=== PATIENT | female | born 1980 | race Caucasian/White ===

== ENCOUNTER 2018-07-18 16:32 | Emergency (ER) | payer SELFPAY ==
[~2018-07-18] VITALS: Wt 82.3 kg
[~2018-07-18 16:32] MED LIST: PREN1TAB49 PO
[2018-07-18] MEDS ORDERED: morphine 4 MG/ML VIAL IV STA ×2 (19:24→20:26)
[2018-07-18] MEDS ORDERED: ONDANSETRON 4 MG INJ IV STA (19:24)
[2018-07-18] MEDS ORDERED: SOD CHLORIDE 0.9% 1,000 ML IV ONE (20:26)
[2018-07-18] MEDS ORDERED: CEFTRIAXONE 1 GM/50 ML (PMX) 50 ML IVPB ONE (20:30)
[2018-07-18] MEDS ORDERED: IOHEXOL 300MG/ML 150 ML BTL ONE (20:47)
[2018-07-18] MEDS ORDERED: SOD CHLORIDE 0.9% 100 ML ONE (20:47)
[2018-07-18] MEDS ORDERED: CIPR500S2 PO (22:28)
[2018-07-18] MEDS ORDERED: HYDR-4011 PO (22:28)
[2018-07-18] MEDS ORDERED: ONDA8TAB14 PO (22:28)
--- NOTE | 2018-07-18 22:33 | ERD ---
ER Documentation Chief Complaint Chief Complaint RUQ PAIN X 4 DAYS HPI 37-year-old female presents with right upper quadrant abdominal pain nausea for last 4 days. Is worse with eating. She has nausea but no vomiting. She denies fevers. She possibly has some urinary complaints of dysuria as well. She denies . She denies known previous history of gallstones. ROS All systems reviewed and are negative except as per history of present illness. Medications Home Meds Active Scripts Ciprofloxacin (Ciprofloxacin) 500 Mg/5 Ml Nargis.mc.rec, 500 MG PO BID for 7 Days, #14 TAB Prov:EDITH FARIAS MD 07/18/18 Ondansetron (Ondansetron Odt) 8 Mg Tab.rapdis, 8 MG PO Q6H PRN for NAUSEA AND/OR VOMITING, #10 TAB Prov:EDITH FARIAS MD 07/18/18 Hydrocodone/Acetaminophen ([place] 5-325 Tablet) 1 Each Tablet, 1 TAB PO Q6H PRN for PAIN, #14 TAB Prov:EDITH FARIAS MD 07/18/18 Reported Medications Vits W-Ca,Fe,Fa(<1MG) () 1 Tab Tablet, 1 TAB PO DAILY, 0 Refills 03/25/11 Allergies Allergies: Coded Allergies: No Known Allergy (Verified , 09/10/11) PMhx/Soc History of Surgery: No Anesthesia Reaction: No Hx Neurological Disorder: No Hx Respiratory Disorders: No Hx Cardiac Disorders: No Hx Psychiatric Problems: No Hx Miscellaneous Medical Probl: No Hx Alcohol Use: No Hx Substance Use: No Hx Tobacco Use: No Smoking Status: Never smoker FmHx Family History: No diabetes, No coronary disease, No other Physical Exam Vitals Vital Signs Date Temp Pulse Resp B/P (MAP) Pulse Ox O2 O2 Flow FiO2 Time Delivery Rate 07/18/18 98.1 78 18 132/88 99 16:45 (103) Physical Exam Const: No acute distress Head: Atraumatic Eyes: Normal Conjunctiva ENT: Normal External Ears, Nose and Mouth. Neck: Full range of motion. No meningismus. Resp: Clear to auscultation bilaterally Cardio: Regular rate and rhythm, no murmurs Abd: Soft, positive Chery sign. No tenderness at McBurney's point., non distended. Normal bowel sounds Skin: No petechiae or rashes Back: No midline or flank tenderness Ext: No cyanosis, or edema Neur: Awake and alert Psych: Normal Mood and Affect Result Diagram: 07/18/18193907/18/181939 Results 24 hrs Laboratory Tests Test 07/18/18 19:27 07/18/18 19:34 07/18/18 19:40 Urine Color YELLOW Urine Clarity SLIGHTLY CLOUDY Urine pH 5.0 Urine Specific [place] 1.014 Urine Ketones NEGATIVE mg/dL Urine Nitrite NEGATIVE mg/dL Urine Bilirubin NEGATIVE mg/dL Urine Urobilinogen 1+ mg/dL Urine Leukocyte Esterase 3+ Iggy/ul Urine Microscopic RBC 10 /HPF Urine Microscopic WBC 26 /HPF Urine Squamous Epithelial Cells FEW /HPF Urine Mucus FEW /HPF Urine Hemoglobin 1+ mg/dL Urine Glucose NEGATIVE mg/dL Urine Total Protein NEGATIVE mg/dl POC Beta HCG, Qualitative NEGATIVE White Blood Count 11.9 10^3/ul Red Blood Count 4.71 10^6/ul Hemoglobin 13.7 g/dl Hematocrit 40.4 % Mean Corpuscular Volume 85.8 fl Mean Corpuscular Hemoglobin 29.1 pg Mean Corpuscular 33.9 g/dl Hemoglobin Concent Red Cell Distribution Width 13.5 % Platelet Count 256 10^3/UL Mean Platelet Volume 8.9 fl Immature Granulocytes % 0.400 % Neutrophils % 80.5 % Lymphocytes % 13.7 % Monocytes % 4.7 % Eosinophils % 0.4 % Basophils % 0.3 % Nucleated Red Blood Cells % 0.0 /100WBC Immature Granulocytes # 0.050 10^3/ul Neutrophils # 9.5 10^3/ul Lymphocytes # 1.6 10^3/ul Monocytes # 0.6 10^3/ul Eosinophils # 0.1 10^3/ul Basophils # 0.0 10^3/ul Nucleated Red Blood Cells # 0.0 10^3/ul Sodium Level 140 mmol/L Potassium Level 4.0 mmol/L Chloride Level 102 mmol/L Carbon Dioxide Level 24 mmol/L Anion Gap 14 Blood Urea Nitrogen 8 mg/dl Creatinine 0.64 mg/dl Est Glomerular Filtrat > 60 mL/min Rate mL/min Glucose Level 110 mg/dl Calcium Level 9.9 mg/dl Total Bilirubin 0.5 mg/dl Direct Bilirubin 0.00 mg/dl Indirect Bilirubin 0.5 mg/dl Aspartate Amino 30 IU/L Transf (AST/SGOT) Alanine 24 IU/L Aminotransferase (ALT/SGPT) Alkaline Phosphatase 80 IU/L Total Protein 9.2 g/dl Albumin 5.1 g/dl Globulin 4.10 g/dl Albumin/Globulin Ratio 1.24 Lipase 60 U/L Current Medications Medications Dose Sig/Denisse Start Time Status Last (Trade) Ordered Route PRN Stop Time Admin Dose Reason Admin Morphine 4 mg ONCE STAT 07/18/18 DC 07/18/18 Sulfate IV 19:24 19:46 (morphine) 07/18/18 19:26 Ondansetron 4 mg ONCE STAT 07/18/18 DC 07/18/18 HCl (Zofran IV 19:24 19:46 Inj) 07/18/18 19:26 Ceftriaxone 50 ml @ ONCE ONCE 07/18/18 DC 07/18/18 Sodium 100 mls/hr IVPB 20:30 20:32 07/18/18 20:59 Morphine 4 mg ONCE STAT 07/18/18 DC 07/18/18 Sulfate IV 20:26 20:32 (morphine) 07/18/18 20:30 Sodium 1,000 ml @ Q0M ONCE 07/18/18 DC 07/18/18 Chloride 0 mls/hr IV 20:26 20:32 07/18/18 20:30 IV Flush 10 ml STK-MED 07/18/18 DC 07/18/18 (NS 10 ml) ONCE .ROUTE 20:47 21:38 07/18/18 20:48 Sodium 100 ml @ ud STK-MED 07/18/18 DC 07/18/18 Chloride ONCE .ROUTE 20:47 21:39 07/18/18 20:48 Iohexol 150 ml STK-MED 07/18/18 DC 07/18/18 (Omnipaque ONCE .ROUTE 20:47 21:39 300mg/ ml) 07/18/18 20:48 Ketorolac 30 mg ONCE STAT 07/18/18 DC Tromethamine IV 22:37 (Toradol) 07/18/18 22:40 Procedures/MDM Urine shows white blood cells and leukocyte esterase. Patient does not meet SIRS criteria. HCG is negative. White blood cell count is 11. CMP shows no transaminitis or additional acute abnormalities and lipase is normal. Right upper quadrant ultrasound shows possible dilated pancreatic duct and gallstones without cystitis or choledocholithiasis. CT recommended for further evaluation of pancreas. She was given morphine 4 mg IV x2 Zofran 4 mg IV. Patient was given 1 L normal saline IV. Patient was given Rocephin 1 g IV for findings of UTI. CT abdomen pelvis shows possible stranding around the gallbladder but no absolute signs of cholecystitis, thickening or choledocholithiasis. There is no abnormalities of the pancreas to correlate with ultrasound. Patient presents with signs and symptoms of UTI, biliary colic. There are no absolute signs of cholecystitis although patient will be given Cipro for treatment of UTI which may help with possible subclinical early cholecystitis. Patient is advised to follow-up with general surgery for evaluation of cholecystectomy. She is advised she may need authorization from primary doctor for general surgery visit. Is no current signs or symptoms of appendicitis, additional symptoms. Cures review negative. Departure Diagnosis: Primary Impression: Gallstones Additional Impressions: UTI (urinary tract infection) Urinary tract infection type: acute cystitis Hematuria presence: without hematuria Qualified Codes: N30.00 - Acute cystitis without hematuria Abdominal pain Abdominal location: right upper quadrant Qualified Codes: R10.11 - Right upper quadrant pain Condition: Stable Patient Instructions: Understanding Urinary Tract Infections (UTIs), Gallstones Referrals: Sarah UREÑA SAMUEL MD KOSARI, KAMBIZ M.D. LOMIS, THOMAS MD Additional Instructions: We will treat for findings of urinary tract infection. There are gallstones without obvious signs of infection or obstruction. Avoid fatty foods. Recheck for fevers, worsening pain, vomiting, new worsening symptoms. Recommend general surgery evaluation for evaluation for removal of gallbladder. May need authorization from primary doctor for general surgery visit. EDITH FARIAS MD Jul 18, 2018 22:33
[2018-07-18] MEDS ORDERED: KETOROLAC 30 MG INJ IV STA (22:37)
[2018-07-18 22:58] VITALS: BP 129/65; PULSE 75; RESP 18
== END 2018-07-18 22:59 | disposition home or self-care (01) ==
LOC: FTE 16:32
DX: K80.20 Calculus of gallbladder without cholecystitis without obstruction (principal); N30.00 Acute cystitis without hematuria
CPT/HCPCS: 36415; 74177; 76705; 80053; 81001; 81025; 83690; 85025; 96374; 96375; 96376; 99285; J0696; J1885; J2270; J2405; J7030; Q9967

== ENCOUNTER 2018-07-20 05:07 | Inpatient (IN) | payer MEDICAID ==
[~2018-07-20] VITALS: Ht 170.2 cm; Wt 81.8 kg
[~2018-07-20 05:07] MED LIST changes: +CIPR500S2 PO; +HYDR-4011 PO; +ONDA8TAB14 PO
[2018-07-20] MEDS ORDERED: morphine 4 MG/ML VIAL IV STA (05:09)
[2018-07-20] MEDS ORDERED: SOD CHLORIDE 0.9% 1,000 ML IV STA (05:09)
[2018-07-20] MEDS ORDERED: ONDANSETRON 4 MG INJ IV STA (05:09)
[2018-07-20 05:10] VITALS: Ht 170.2 cm; Wt 81.8 kg
--- NOTE | 2018-07-20 06:21 | ERD ---
ER Documentation Chief Complaint Chief Complaint BIB RA 889 for AP w/ n/v, hx of gallstones HPI 37-year-old female who was recently here diagnosed with biliary colic who presents because of persistent pain. Patient was seen here several days ago and diagnosed with biliary colic on ultrasound which showed a possibly dilated common bile duct. LFTs were nonobstructive. The patient states [place] at home is not helping. 10 out of 10 severe persistent right upper quadrant abdominal pain is present. No fevers or chills. Persistent nausea. ROS All systems reviewed and are negative except as per history of present illness. Medications Home Meds Active Scripts Ciprofloxacin (Ciprofloxacin) 500 Mg/5 Ml Nargis.mc.rec, 500 MG PO BID for 7 Days, #14 TAB Prov:EDITH FARIAS MD 07/18/18 Ondansetron (Ondansetron Odt) 8 Mg Tab.rapdis, 8 MG PO Q6H PRN for NAUSEA AND/OR VOMITING, #10 TAB Prov:EDITH FARIAS MD 07/18/18 Hydrocodone/Acetaminophen ([place] 5-325 Tablet) 1 Each Tablet, 1 TAB PO Q6H PRN for PAIN, #14 TAB Prov:EDITH FARIAS MD 07/18/18 Reported Medications Vits W-Ca,Fe,Fa(<1MG) () 1 Tab Tablet, 1 TAB PO DAILY, 0 Refills 03/25/11 Allergies Allergies: Coded Allergies: No Known Allergy (Verified , 09/10/11) PMhx/Soc History of Surgery: No Anesthesia Reaction: No Hx Neurological Disorder: No Hx Respiratory Disorders: No Hx Cardiac Disorders: No Hx Psychiatric Problems: No Hx Miscellaneous Medical Probl: No Hx Alcohol Use: No Hx Substance Use: No Hx Tobacco Use: No Smoking Status: Never smoker FmHx Family History: No diabetes Physical Exam Vitals Vital Signs Date Temp Pulse Resp B/P (MAP) Pulse Ox O2 O2 Flow FiO2 Time Delivery Rate 07/20/18 98.0 66 16 134/94 100 05:10 (107) 07/20/18 98.0 68 15 134/74 99 Room Air 05:09 (94) Physical Exam General: Uncomfortable and in pain Head: Normocephalic, atraumatic. Eyes: Pupils equally reactive, EOM intact ENT: Moist mucous membranes Neck: Supple, no lymphadenopathy Respiratory: Lungs clear bilaterally, no distress Cardiovascular: RRR, no murmurs, rubs, or gallops Abdominal: Soft, focal tenderness to the right upper quadrant positive Chery sign : Deferred MSK: No edema, no unilateral swelling, 5/5 strength Neurologic: Alert and oriented, moving all extremities, normal speech, no focal weakness, no cerebellar signs Skin: No rash Psych: Normal mood Result Diagram: 07/20/1852007/20/18520 Results 24 hrs Laboratory Tests Test 07/20/18 05:21 07/20/18 06:06 White Blood Count 9.3 10^3/ul Red Blood Count 4.27 10^6/ul Hemoglobin 12.4 g/dl Hematocrit 36.7 % Mean Corpuscular Volume 85.9 fl Mean Corpuscular Hemoglobin 29.0 pg Mean Corpuscular Hemoglobin Concent 33.8 g/dl Red Cell Distribution Width 13.2 % Platelet Count 234 10^3/UL Mean Platelet Volume 9.0 fl Immature Granulocytes % 0.300 % Neutrophils % 84.1 % Lymphocytes % 9.0 % Monocytes % 6.2 % Eosinophils % 0.2 % Basophils % 0.2 % Nucleated Red Blood Cells % 0.0 /100WBC Immature Granulocytes # 0.030 10^3/ul Neutrophils # 7.8 10^3/ul Lymphocytes # 0.8 10^3/ul Monocytes # 0.6 10^3/ul Eosinophils # 0.0 10^3/ul Basophils # 0.0 10^3/ul Nucleated Red Blood Cells # 0.0 10^3/ul Sodium Level 140 mmol/L Potassium Level 4.1 mmol/L Chloride Level 102 mmol/L Carbon Dioxide Level 27 mmol/L Anion Gap 11 Blood Urea Nitrogen 7 mg/dl Creatinine 0.61 mg/dl Est Glomerular Filtrat Rate mL/min > 60 mL/min Glucose Level 128 mg/dl Calcium Level 9.6 mg/dl Total Bilirubin 0.7 mg/dl Direct Bilirubin 0.00 mg/dl Indirect Bilirubin 0.7 mg/dl Aspartate Amino Transf (AST/SGOT) 64 IU/L Alanine Aminotransferase (ALT/SGPT) 101 IU/L Alkaline Phosphatase 106 IU/L Total Protein 8.2 g/dl Albumin 4.6 g/dl Globulin 3.60 g/dl Albumin/Globulin Ratio 1.27 Lipase 57 U/L POC Beta HCG, Qualitative NEGATIVE Current Medications Medications Dose Sig/Denisse Start Time Status Last (Trade) Ordered Route PRN Stop Time Admin Dose Reason Admin Sodium 1,000 ml @ Q1H STAT 07/20/18 DC 07/20/18 Chloride 1,000 mls/hr IV 05:09 06:01 07/20/18 06:08 Morphine 4 mg ONCE STAT 07/20/18 DC 07/20/18 Sulfate IV 05:09 05:55 (morphine) 07/20/18 05:11 Ondansetron 4 mg ONCE STAT 07/20/18 DC 07/20/18 HCl (Zofran IV 05:09 05:54 Inj) 07/20/18 05:11 Ampicillin 100 ml @ ONCE ONCE 07/20/18 Sodium/ 100 mls/hr IVPB 06:30 Sulbactam 07/20/18 07:29 Sodium Procedures/MDM EKG, MONITORS, & DIAGNOSTIC IMAGING: Gallbladder ultrasound: IMPRESSION: Study slightly limited by bowel gas. distended gallbladder with stones and positive sonographic Chery's sign as well as dilated common bile duct. Acute cholecystitis with choledocholithiasis must be considered. HIDA scan could confirm cholecystitis while MRCP would be helpful in evaluating for choledocholithiasis. Hepatomegaly. RPTAT: [facility] LAB INTERPRETATION: * No leukocytosis * Slight transaminitis MEDICAL DECISION MAKING: The patient presents with persistent right upper quadrant abdominal pain in the setting of gallstones. Consider persistent biliary colic, acute cholecystitis or choledocholithiasis. Given the persistence of pain and focal tenderness this raises the concern for more of an acute process that warrants hospitalization and general surgery consultation. Laboratory testing and repeat ultrasound would be appropriate. ER COURSE: * The patient has no fever no white count but ultrasound is concerning for acute cholecystitis. Also consider choledocholithiasis * General surgery will be consulted * IV fluids and pain control medication provided. Unasyn given. CONSULTATION: General surgeon: Dr. Connelly DISPOSITION PLAN: Medical surgical admission Accepting care team and consultations: I discussed the current laboratory data, diagnostic imaging and emergency care provided. Admitting team: Dr. Stewart Admitting team indication: Insurance directed Departure Diagnosis: Primary Impression: Acute cholecystitis Additional Impressions: Choledocholithiasis Right upper quadrant abdominal pain Condition: Good ZION ORR MD Jul 20, 2018 06:21
[2018-07-20] MEDS ORDERED: AMPICILLIN/SULB 3 GM/NS (PMX) 100 ML IVPB ONE (06:30)
[2018-07-20] MEDS ORDERED: HYDROmorphONE 0.5 MG/0.5 ML SYG IV STA (06:49)
[2018-07-20] MEDS ORDERED: ONDANSETRON 4 MG INJ IV PRN ×2 (07:00)
[2018-07-20] MEDS ORDERED: HYDROmorphONE 0.5 MG/0.5 ML SYG IV PRN (07:00)
[2018-07-20] MEDS ORDERED: NACL 0.9% 3 ML SYG IV SCH (07:00)
[2018-07-20] MEDS ORDERED: BISACODYL (EC) 5 MG TAB PO PRN (07:00)
[2018-07-20] MEDS ORDERED: ACETAMINOPHEN 325 MG TAB PO PRN (07:00)
[2018-07-20] MEDS ORDERED: DOCUSATE SODIUM 100 MG CAP PO PRN (07:00)
[2018-07-20] MEDS: SOD CHLORIDE 0.9% 1,000 ML IV SCH ×2 (07:11→21:26)
--- NOTE | 2018-07-20 08:52 | HP ---
Date/Time of Note Date/Time of Note DATE: 07/20/18 TIME: 08:43 Assessment/Plan VTE Prophylaxis SCD applied (from Nsg): Yes Pharmacological prophylaxis: NA/contraindicated Pharm contraindication: low risk/ambulating Lines/Catheters IV Catheter Type (from Nrsg): Saline Lock Assessment/Plan Hospital Course This is a 37 per female being admitted to the [facility] floor for: #1 suspicion for acute cholecystitis: Ultrasound findings concerning for acute cholecystitis with with CBD dilatation concerning for choledocholithiasis. Patient however is afebrile and no leukocytosis. However patient is symptomatic. Her AST and ALT are slightly elevated however she has normal alk phos and bilirubin. Will obtain an MRCP to further evaluate. General surgery Dr. Connelly is [place] been consulted by the ED. At the current time we will keep the patient n.p.o., IV fluid hydration with normal saline, Dilaudid for pain control. Zosyn IV every 6 hours. #2 urinary tract infection: Was on Cipro as an outpatient, at the current time I will hold this as she will be on Zosyn. #3 DVT GI prophylaxis: SCDs, no GI prophylaxis indicated Further treatment strategy will be implemented as per the clinical course Result Diagram: 07/20/18 0521 07/20/18 0521 Results 24hrs Laboratory Tests Test 07/20/18 05:21 07/20/18 06:06 White Blood Count 9.3 # Red Blood Count 4.27 Hemoglobin 12.4 Hematocrit 36.7 L Mean Corpuscular Volume 85.9 Mean Corpuscular Hemoglobin 29.0 Mean Corpuscular Hemoglobin Concent 33.8 Red Cell Distribution Width 13.2 Platelet Count 234 Mean Platelet Volume 9.0 Immature Granulocytes % 0.300 Neutrophils % 84.1 H Lymphocytes % 9.0 L Monocytes % 6.2 Eosinophils % 0.2 Basophils % 0.2 Nucleated Red Blood Cells % 0.0 Immature Granulocytes # 0.030 Neutrophils # 7.8 H Lymphocytes # 0.8 Monocytes # 0.6 Eosinophils # 0.0 Basophils # 0.0 Nucleated Red Blood Cells # 0.0 Sodium Level 140 Potassium Level 4.1 Chloride Level 102 Carbon Dioxide Level 27 Anion Gap 11 Blood Urea Nitrogen 7 Creatinine 0.61 Est Glomerular Filtrat Rate mL/min > 60 Glucose Level 128 Calcium Level 9.6 Total Bilirubin 0.7 Direct Bilirubin 0.00 Indirect Bilirubin 0.7 Aspartate Amino Transf (AST/SGOT) 64 H Alanine Aminotransferase (ALT/SGPT) 101 H Alkaline Phosphatase 106 Total Protein 8.2 H Albumin 4.6 Globulin 3.60 H Albumin/Globulin Ratio 1.27 Lipase 57 POC Beta HCG, Qualitative NEGATIVE HPI/ROS Admit Date/Time Admit Date/Time Hx of Present Illness Chief complaint: Abdominal pain nausea vomiting This is a 37-year-old female who was recently here diagnosed with biliary colic who presents because of persistent pain. Patient was seen here several days ago and diagnosed with biliary colic on ultrasound which showed a possibly dilated common bile duct. LFTs were nonobstructive. The patient states [place] at home is not helping. 10 out of 10 severe persistent right upper quadrant abdominal pain is present. No fevers or chills. Persistent nausea And vomiting. She is also currently being treated for UTI with Cipro. Allergies: NKDA Medications: See Sep Const: As per HPI Eyes : No pain discharge or redness or change in visual acuity ENT: No pain, sore throat, congestion, congestion, dysphagia or discharge Respiratory: No shortness of breath, cough, sputum, wheezing, or pleuritic pain Cardiovascular: No chest pain, palpitation, PND, or edema GI : As per HPI Genitourinary: No dysuria, hematuria, flank pain , discharge or CVA tenderness Musculoskeletal: No joint pain, back pain, neck pain, restricted range of motion in neck or joints Skin: No rash, bruising or hives Neuro: No headache, dizziness, syncope, seizure, focal weakness Endocrine: No polyuria, polydipsia, temperature intolerance Psych: No hallucination, depression, anxiety or suicidal ideation Psychological: no complaints, nl mood/affect PMH/Family/Social Past Medical History Gallstones, UTI Medications Current Medications Ondansetron HCl (Zofran Inj) 4 mg BRIDGE ORDER PRN IV NAUSEA AND/OR VOMITING Last administered on 07/20/18at 07:10; Admin Dose 4 MG; Start 07/20/18 at 07:00; Stop 07/21/18 at 06:59 Acetaminophen (Tylenol Tab) 650 mg ER BRIDGE PRN PO MILD PAIN(1-3)OR ELEVATED TEMP; Start 07/20/18 at 07:00; Stop 07/21/18 at 06:59 Sodium Chloride 1,000 ml @ 100 mls/hr Q10H IV Last administered on 07/20/18at 07:11; Admin Dose 100 MLS/HR; Start 07/20/18 at 06:44 IV Flush (NS 3 ml) 3 ml PER PROTOCOL IV ; Start 07/20/18 at 07:00 Ondansetron HCl (Zofran Inj) 4 mg Q6H PRN IV NAUSEA AND/OR VOMITING; Start 07/20/18 at 07:00 Acetaminophen (Tylenol Tab) 650 mg Q6H PRN PO PAIN LEVEL 1-3 OR FEVER; Start 07/20/18 at 07:00 Hydromorphone HCl (Dilaudid) 0.5 mg Q4H PRN IV SEVERE PAIN LEVEL 7-10; Start 07/20/18 at 07:00 Docusate Sodium (Colace) 100 mg Q12H PRN PO CONSTIPATION; Start 07/20/18 at 07 :00 Bisacodyl (Dulcolax) 5 mg DAILY PRN PO CONSTIPATION; Start 07/20/18 at 07:00 Coded Allergies: No Known Allergy (Verified , 07/20/18) Past Surgical History Bilateral tubal ligation Family History Significant Family History: no pertinent family hx Social History Alcohol Use: none Smoking Status: Never smoker Drug Use: none Exam/Review of Systems Vital Signs Vitals Vital Signs Date Temp Pulse Resp B/P (MAP) Pulse Ox O2 O2 Flow FiO2 Time Delivery Rate 07/20/18 69 121/74 98 Room Air 07:30 (90) 07/20/18 98.0 16 05:10 Exam Exam General: Patient is currently lying in bed, she does appear to be in mild distress from abdominal pain HEENT: Atraumatic, normocephalic. The pupils are equal, round and reactive. Extraocular motor are intact Neck: Supple with full range of motion. No rigidity or meningismus Chest: Nontender Lungs: Clear to auscultation bilaterally no crackles rales or wheezing Heart: Normal S1-S2, Regular rhythm and rate. No overt murmurs appreciated on auscultation Abdomen: Right upper quadrant tenderness to palpation, nondistended, normal bowel sounds. No CVA tenderness elevation. Extremities: Normal to inspection, no edema no cyanosis Neurologic: Normal mental status, speech normal, cranial nerves II through XII are intact, motor and sensory are intact, no focal weakness VIVIAN PERRY Jul 20, 2018 08:52
[2018-07-20] MEDS: PIPER-TAZO 3.375 GM IV (PMX) 100 ML IVPB SCH ×4 (09:51→23:47)
[2018-07-20 10:37] VITALS: BP 138/80; PULSE 66; RESP 17
[2018-07-20] MEDS: HYDROmorphONE 1 MG/ML SYG IV PRN ×4 (12:35→21:26)
--- NOTE | 2018-07-20 12:41 | PN ---
Date/Time of Note Date/Time of Note DATE: 07/20/18 TIME: 12:40 Assessment/Plan VTE Prophylaxis SCD applied (from Nsg): Yes Pharmacological prophylaxis: NA/contraindicated Pharm contraindication: low risk/ambulating Lines/Catheters IV Catheter Type (from Nrsg): Saline Lock Assessment/Plan Hospital Course SUBJECTIVE: Continues to complain of abdominal pain. OBJECTIVE: Physical Exam General: Adequately build 37 year-old female lying in bed in no apparent distress. HEENT: Normocephalic, atraumatic. Eyes: Anicteric sclerae, conjunctivae clear. ENT: Nasal septum midline, oral mucosa moist. Neck supple, no JVD noticed. Respiratory: Bilaterally clear breath sounds. No use of accessory muscles of respiration. No adventitious breath sounds. Cardiovascular: S1, S2 heard. No murmurs or gallops. Abdomen: Soft and nondistended. Epigastric and right upper quadrant tenderness. Bowel sounds positive in all 4 quadrants. Genitourinary: Deferred. Extremities: No cyanosis, no clubbing, no edema. Peripheral pulses palpable. Neurologic: Cranial nerves II through XII grossly intact. The patient is awake, alert, and oriented. Skin: Normal skin turgor. No skin rashes. Labs & Vitals per chart ASSESSMENT & PLAN This is a 37-year-old [place] female who was recently diagnosed with gallstones and was instructed to follow-up with outpatient surgery for elective cholecy stectomy. The patient was initially seen at [facility] on 07/18/2018. The patient returned back to [facility] on 07/20/2018 because of abdominal pain with associated nausea and vomiting. The patient underwent a gallbladder ultrasound that was showing distended ga llbladder with stones and positive sonographic Chery's sign along with a dilated common bile duct. The patient also had underlying transaminitis without hyperbilirubinemia. Therefore, the patient was admitted to inpatient setting for further treatment and evaluation. 1. Symptomatic cholelithiasis -Possible underlying cholecystitis. -Continue empiric antimicrobials including coverage for anaerobes. -General surgery has been consulted. -Pending MRCP to evaluate for any choledocholithiasis. 2. Transaminitis without hyperbilirubinemia. -Continue management as per #1. 3. Recently diagnosed urinary tract infection. -Was on Cipro as outpatient (no cultures were sent on 07/18/2018). -Continue Zosyn at this time. 4. Fluids, electrolytes, and nutrition. -N.p.o. except for medications. -IV fluids. 5. DVT prophylaxis. -Bilateral SCDs 6. Plan. -Continue pain control. -Await MRCP. -Await surgical evaluation. The patient was seen in collaboration with . Result Diagram: 07/20/18 0507/20/18 0521 Results 24hrs Laboratory Tests Test 07/20/18 05:21 07/20/18 06:06 07/20/18 10:11 White Blood Count 9.3 # Red Blood Count 4.27 Hemoglobin 12.4 Hematocrit 36.7 L Mean Corpuscular Volume 85.9 Mean Corpuscular Hemoglobin 29.0 Mean Corpuscular Hemoglobin Concent 33.8 Red Cell Distribution Width 13.2 Platelet Count 234 Mean Platelet Volume 9.0 Immature Granulocytes % 0.300 Neutrophils % 84.1 H Lymphocytes % 9.0 L Monocytes % 6.2 Eosinophils % 0.2 Basophils % 0.2 Nucleated Red Blood Cells % 0.0 Immature Granulocytes # 0.030 Neutrophils # 7.8 H Lymphocytes # 0.8 Monocytes # 0.6 Eosinophils # 0.0 Basophils # 0.0 Nucleated Red Blood Cells # 0.0 Sodium Level 140 Potassium Level 4.1 Chloride Level 102 Carbon Dioxide Level 27 Anion Gap 11 Blood Urea Nitrogen 7 Creatinine 0.61 Est Glomerular Filtrat Rate mL/min > 60 Glucose Level 128 Calcium Level 9.6 Total Bilirubin 0.7 Direct Bilirubin 0.00 Indirect Bilirubin 0.7 Aspartate Amino Transf (AST/SGOT) 64 H Alanine Aminotransferase (ALT/SGPT) 101 H Alkaline Phosphatase 106 Total Protein 8.2 H Albumin 4.6 Globulin 3.60 H Albumin/Globulin Ratio 1.27 Lipase 57 POC Beta HCG, Qualitative NEGATIVE Prothrombin Time 14.3 Prothrombin Time Ratio 1.1 INR International Normalized Ratio 1.10 Activated Partial Thromboplast Time 31.9 Exam/Review of Systems Vital Signs Vitals Vital Signs Date Temp Pulse Resp B/P (MAP) Pulse Ox O2 O2 Flow FiO2 Time Delivery Rate 07/20/18 99.0 66 17 138/80 97 Room Air 10:37 (99) Medications Medications Current Medications Sodium Chloride 1,000 ml @ 100 mls/hr Q10H IV Last administered on 07/20/18at 07:11; Admin Dose 100 MLS/HR; Start 07/20/18 at 06:44 IV Flush (NS 3 ml) 3 ml PER PROTOCOL IV ; Start 07/20/18 at 07:00 Ondansetron HCl (Zofran Inj) 4 mg Q6H PRN IV NAUSEA AND/OR VOMITING; Start 07/20/18 at 07:00 Acetaminophen (Tylenol Tab) 650 mg Q6H PRN PO PAIN LEVEL 1-3 OR FEVER; Start 07/20/18 at 07:00 Docusate Sodium (Colace) 100 mg Q12H PRN PO CONSTIPATION; Start 07/20/18 at 07:00 Bisacodyl (Dulcolax) 5 mg DAILY PRN PO CONSTIPATION; Start 07/20/18 at 07:00 Piperacillin Sod/ Tazobactam Sod 100 ml @ 200 mls/hr Q6 IVPB Last administered on 07/20/18at 09:51; Admin Dose 200 MLS/HR; Start 07/20/18 at 10:00 Hydromorphone HCl (Dilaudid) 1 mg Q3H PRN IV SEVERE PAIN LEVEL 7-10 Last administered on 07/20/18at 12:35; Admin Dose 1 MG; Start 07/20/18 at 12:30 RUFINA DOWNS NP Jul 20, 2018 12:41
[2018-07-20 14:52] VITALS: BP 120/71; PULSE 78; RESP 14
--- NOTE | 2018-07-20 15:25 | CONS ---
Date/Time of Note Date/Time of Note DATE: 07/20/18 TIME: 15:05 Assessment/Plan Assessment/Plan Assessment/Plan Assessment: RUQ/Upper abd pain Cholelithiasis/Cholecystitis Dilated CBD/ R/o Choledocholithiasis Transaminitis, Normal Bili UTI - on Cipro Blaine induced Constipation Plan: MRCP - pending May start on clear liquid diet after MRCP Monitor LFT's Pain management Antiemetics Further recommendations will depend on the results of MRCP Patient seen in collaboration with Dr. Frazier Result Diagram: 07/20/1852007/20/18520 Results 24hrs Laboratory Tests Test 07/20/18 05:21 07/20/18 06:06 07/20/18 10:11 White Blood Count 9.3 # Red Blood Count 4.27 Hemoglobin 12.4 Hematocrit 36.7 L Mean Corpuscular Volume 85.9 Mean Corpuscular Hemoglobin 29.0 Mean Corpuscular Hemoglobin Concent 33.8 Red Cell Distribution Width 13.2 Platelet Count 234 Mean Platelet Volume 9.0 Immature Granulocytes % 0.300 Neutrophils % 84.1 H Lymphocytes % 9.0 L Monocytes % 6.2 Eosinophils % 0.2 Basophils % 0.2 Nucleated Red Blood Cells % 0.0 Immature Granulocytes # 0.030 Neutrophils # 7.8 H Lymphocytes # 0.8 Monocytes # 0.6 Eosinophils # 0.0 Basophils # 0.0 Nucleated Red Blood Cells # 0.0 Sodium Level 140 Potassium Level 4.1 Chloride Level 102 Carbon Dioxide Level 27 Anion Gap 11 Blood Urea Nitrogen 7 Creatinine 0.61 Est Glomerular Filtrat Rate mL/min > 60 Glucose Level 128 Calcium Level 9.6 Total Bilirubin 0.7 Direct Bilirubin 0.00 Indirect Bilirubin 0.7 Aspartate Amino Transf (AST/SGOT) 64 H Alanine Aminotransferase (ALT/SGPT) 101 H Alkaline Phosphatase 106 Total Protein 8.2 H Albumin 4.6 Globulin 3.60 H Albumin/Globulin Ratio 1.27 Lipase 57 POC Beta HCG, Qualitative NEGATIVE Prothrombin Time 14.3 Prothrombin Time Ratio 1.1 INR International Normalized Ratio 1.10 Activated Partial Thromboplast Time 31.9 CC: MAXX FRAZIER MD ; Consultation Date/Type/Reason Admit Date/Time Date of Consultation: Jul 20, 2018 Type of Consult GI Reason for Consultation Dilated CBD/r/o Choledocholithiasis Hx of Present Illness This is a 37-year-old female who initially presented to ED on July 13 with RUQ pain is was dc'd on Blaine is now admitted for worsening in RUQ abd pain, nausea and Vomiting. Patient also developed constipation while on Blaine. Abdominal ultrasound showed dilated common bile duct 8 mm, multiple gallstones, cholec ystitis, No intrahepatic biliary dilatation.Transaminitis noted with normal bilirubin. Currently patient denies, vomiting, diarrhea, hematochezia, hematemesis, fever or chills. She is also being treated for UTI with Cipro. The plan is to obtain MRCP to r/o choledocholithiasis. Plan discussed with the patient. Gastrointestinal: no complaints (See HPI) Past Medical History Medical History: no pertinent history Medications Current Medications Sodium Chloride 1,000 ml @ 100 mls/hr Q10H IV Last administered on 07/20/18at 07:11; Admin Dose 100 MLS/HR; Start 07/20/18 at 06:44 IV Flush (NS 3 ml) 3 ml PER PROTOCOL IV ; Start 07/20/18 at 07:00 Ondansetron HCl (Zofran Inj) 4 mg Q6H PRN IV NAUSEA AND/OR VOMITING; Start 07/20/18 at 07:00 Acetaminophen (Tylenol Tab) 650 mg Q6H PRN PO PAIN LEVEL 1-3 OR FEVER; Start 07/20/18 at 07:00 Docusate Sodium (Colace) 100 mg Q12H PRN PO CONSTIPATION; Start 07/20/18 at 07:00 Bisacodyl (Dulcolax) 5 mg DAILY PRN PO CONSTIPATION; Start 07/20/18 at 07:00 Piperacillin Sod/ Tazobactam Sod 100 ml @ 200 mls/hr Q6 IVPB Last administered on 07/20/18at 14:22; Admin Dose 200 MLS/HR; Start 07/20/18 at 10:00 Hydromorphone HCl (Dilaudid) 1 mg Q3H PRN IV SEVERE PAIN LEVEL 7-10 Last administered on 07/20/18at 12:35; Admin Dose 1 MG; Start 07/20/18 at 12:30 Allergies: Coded Allergies: No Known Allergy (Verified , 07/20/18) Past Surgical History BTL Social History Alcohol Use: none Smoking Status: Never smoker Drug Use: none Exam/Review of Systems Vital Signs Vitals Vital Signs Date Temp Pulse Resp B/P (MAP) Pulse Ox O2 O2 Flow FiO2 Time Delivery Rate 07/20/18 98.7 78 14 120/71 97 Room Air 14:52 (87) Exam General: Patient is currently lying in bed, she does appear to be in mild distress from abdominal pain HEENT: Atraumatic, normocephalic. The pupils are equal, round and reactive. Extraocular motor are intact Neck: Supple with full range of motion. No rigidity or meningismus Chest: Nontender Lungs: Clear to auscultation bilaterally no crackles rales or wheezing Heart: Normal S1-S2, Regular rhythm and rate. No overt murmurs appreciated on auscultation Abdomen: Upper abdominal tenderness radiating to the back and chest, nondistended, normal bowel sounds, no hernias, no ascites. Extremities: Normal to inspection, no edema no cyanosis Medications Medications Current Medications Sodium Chloride 1,000 ml @ 100 mls/hr Q10H IV Last administered on 07/20/18at 07:11; Admin Dose 100 MLS/HR; Start 07/20/18 at 06:44 IV Flush (NS 3 ml) 3 ml PER PROTOCOL IV ; Start 07/20/18 at 07:00 Ondansetron HCl (Zofran Inj) 4 mg Q6H PRN IV NAUSEA AND/OR VOMITING; Start 07/20/18 at 07:00 Acetaminophen (Tylenol Tab) 650 mg Q6H PRN PO PAIN LEVEL 1-3 OR FEVER; Start at 07:00 Docusate Sodium (Colace) 100 mg Q12H PRN PO CONSTIPATION; Start 07/20/18 at 07:00 Bisacodyl (Dulcolax) 5 mg DAILY PRN PO CONSTIPATION; Start 07/20/18 at 07:00 Piperacillin Sod/ Tazobactam Sod 100 ml @ 200 mls/hr Q6 IVPB Last administered on 07/20/18at 14:22; Admin Dose 200 MLS/HR; Start 07/20/18 at 10:00 Hydromorphone HCl (Dilaudid) 1 mg Q3H PRN IV SEVERE PAIN LEVEL 7-10 Last a dministered on 07/20/18at 12:35; Admin Dose 1 MG; Start 07/20/18 at 12:30 ERICA MONTOYA NP Jul 20, 2018 15:19
--- NOTE | 2018-07-20 16:25 | CONS ---
Date/Time of Note Date/Time of Note DATE: 07/20/18 TIME: 16:13 Assessment/Plan Assessment/Plan Result Diagram: 07/20/18 0521 07/20/18 0521 Results 24hrs Laboratory Tests Test 07/20/18 05:21 07/20/18 06:06 07/20/18 10:11 White Blood Count 9.3 # Red Blood Count 4.27 Hemoglobin 12.4 Hematocrit 36.7 L Mean Corpuscular Volume 85.9 Mean Corpuscular Hemoglobin 29.0 Mean Corpuscular Hemoglobin Concent 33.8 Red Cell Distribution Width 13.2 Platelet Count 234 Mean Platelet Volume 9.0 Immature Granulocytes % 0.300 Neutrophils % 84.1 H Lymphocytes % 9.0 L Monocytes % 6.2 Eosinophils % 0.2 Basophils % 0.2 Nucleated Red Blood Cells % 0.0 Immature Granulocytes # 0.030 Neutrophils # 7.8 H Lymphocytes # 0.8 Monocytes # 0.6 Eosinophils # 0.0 Basophils # 0.0 Nucleated Red Blood Cells # 0.0 Sodium Level 140 Potassium Level 4.1 Chloride Level 102 Carbon Dioxide Level 27 Anion Gap 11 Blood Urea Nitrogen 7 Creatinine 0.61 Est Glomerular Filtrat Rate mL/min > 60 Glucose Level 128 Calcium Level 9.6 Total Bilirubin 0.7 Direct Bilirubin 0.00 Indirect Bilirubin 0.7 Aspartate Amino Transf (AST/SGOT) 64 H Alanine Aminotransferase (ALT/SGPT) 101 H Alkaline Phosphatase 106 Total Protein 8.2 H Albumin 4.6 Globulin 3.60 H Albumin/Globulin Ratio 1.27 Lipase 57 POC Beta HCG, Qualitative NEGATIVE Prothrombin Time 14.3 Prothrombin Time Ratio 1.1 INR International Normalized Ratio 1.10 Activated Partial Thromboplast Time 31.9 Consultation Date/Type/Reason Admit Date/Time Past Medical History Medical History: no pertinent history Medications Current Medications Sodium Chloride 1,000 ml @ 100 mls/hr Q10H IV Last administered on 07/20/18at 07:11; Admin Dose 100 MLS/HR; Start 07/20/18 at 06:44 IV Flush (NS 3 ml) 3 ml PER PROTOCOL IV ; Start 07/20/18 at 07:00 Ondansetron HCl (Zofran Inj) 4 mg Q6H PRN IV NAUSEA AND/OR VOMITING; Start 07/20/18 at 07:00 Acetaminophen (Tylenol Tab) 650 mg Q6H PRN PO PAIN LEVEL 1-3 OR FEVER; Start 07/20/18 at 07:00 Docusate Sodium (Colace) 100 mg Q12H PRN PO CONSTIPATION; Start 07/20/18 at 07:00 Bisacodyl (Dulcolax) 5 mg DAILY PRN PO CONSTIPATION; Start 07/20/18 at 07:00 Piperacillin Sod/ Tazobactam Sod 100 ml @ 200 mls/hr Q6 IVPB Last administered on 07/20/18at 14:22; Admin Dose 200 MLS/HR; Start 07/20/18 at 10:00 Hydromorphone HCl (Dilaudid) 1 mg Q3H PRN IV SEVERE PAIN LEVEL 7-10 Last administered on 07/20/18at 12:35; Admin Dose 1 MG; Start 07/20/18 at 12:30 Allergies: Coded Allergies: No Known Allergy (Verified , 07/20/18) Social History Alcohol Use: none Smoking Status: Never smoker Drug Use: none Exam/Review of Systems Vital Signs Vitals Vital Signs Date Temp Pulse Resp B/P (MAP) Pulse Ox O2 O2 Flow FiO2 Time Delivery Rate 07/20/18 98.7 78 14 120/71 97 Room Air 14:52 (87) Medications Medications Current Medications Sodium Chloride 1,000 ml @ 100 mls/hr Q10H IV Last administered on 07/20/18at 07:11; Admin Dose 100 MLS/HR; Start 07/20/18 at 06:44 IV Flush (NS 3 ml) 3 ml PER PROTOCOL IV ; Start 07/20/18 at 07:00 Ondansetron HCl (Zofran Inj) 4 mg Q6H PRN IV NAUSEA AND/OR VOMITING; Start 07/20/18 at 07:00 Acetaminophen (Tylenol Tab) 650 mg Q6H PRN PO PAIN LEVEL 1-3 OR FEVER; Start 07/20/18 at 07:00 Docusate Sodium (Colace) 100 mg Q12H PRN PO CONSTIPATION; Start 07/20/18 at 07:00 Bisacodyl (Dulcolax) 5 mg DAILY PRN PO CONSTIPATION; Start 07/20/18 at 07:00 Piperacillin Sod/ Tazobactam Sod 100 ml @ 200 mls/hr Q6 IVPB Last administered on 07/20/18at 14:22; Admin Dose 200 MLS/HR; Start 07/20/18 at 10:00 Hydromorphone HCl (Dilaudid) 1 mg Q3H PRN IV SEVERE PAIN LEVEL 7-10 Last adm inistered on 07/20/18at 12:35; Admin Dose 1 MG; Start 07/20/18 at 12:30 ERICA MONTOYA NP Jul 20, 2018 16:23
[2018-07-20 20:30] VITALS: BP 132/77; PULSE 75; RESP 18
[2018-07-21] VITALS (26 sets, daily range): BP systolic 114–135; BP diastolic 57–78; PULSE 66–98; RESP 12–22
--- NOTE | 2018-07-21 01:05 | CONS ---
Date/Time of Note Date/Time of Note DATE: 07/21/18 TIME: 01:04 Assessment/Plan Assessment/Plan Assessment/Plan Acute cholecystitis with mildly dilated common bile duct with MRI abdomen (MRCP) noting mildly dilated duct but without evidence of common duct pathology or stones. Therefore recommendation for what appears now to be a crescendo attack of acute cholecystitis is that patient undergo laparoscopic cholecystectomy before discharge. She is having crescendo symptoms and seems warranted she may very well have passed a stone before this presentation. Details of the procedure versus alternatives were discussed including possibility of open procedure depending on anatomy. Patient is agreeable to proceed she would like to proceed before discharge as I have recommended and we will try to put the patient scheduled for tomorrow. Result Diagram: 07/20/1852007/20/18520 Results 24hrs Laboratory Tests Test 07/20/18 05:21 07/20/18 06:06 07/20/18 10:11 White Blood Count 9.3 # Red Blood Count 4.27 Hemoglobin 12.4 Hematocrit 36.7 L Mean Corpuscular Volume 85.9 Mean Corpuscular Hemoglobin 29.0 Mean Corpuscular Hemoglobin Concent 33.8 Red Cell Distribution Width 13.2 Platelet Count 234 Mean Platelet Volume 9.0 Immature Granulocytes % 0.300 Neutrophils % 84.1 H Lymphocytes % 9.0 L Monocytes % 6.2 Eosinophils % 0.2 Basophils % 0.2 Nucleated Red Blood Cells % 0.0 Immature Granulocytes # 0.030 Neutrophils # 7.8 H Lymphocytes # 0.8 Monocytes # 0.6 Eosinophils # 0.0 Basophils # 0.0 Nucleated Red Blood Cells # 0.0 Sodium Level 140 Potassium Level 4.1 Chloride Level 102 Carbon Dioxide Level 27 Anion Gap 11 Blood Urea Nitrogen 7 Creatinine 0.61 Est Glomerular Filtrat Rate mL/min > 60 Glucose Level 128 Calcium Level 9.6 Total Bilirubin 0.7 Direct Bilirubin 0.00 Indirect Bilirubin 0.7 Aspartate Amino Transf (AST/SGOT) 64 H Alanine Aminotransferase (ALT/SGPT) 101 H Alkaline Phosphatase 106 Total Protein 8.2 H Albumin 4.6 Globulin 3.60 H Albumin/Globulin Ratio 1.27 Lipase 57 POC Beta HCG, Qualitative NEGATIVE Prothrombin Time 14.3 Prothrombin Time Ratio 1.1 INR International Normalized Ratio 1.10 Activated Partial Thromboplast Time 31.9 Consultation Date/Type/Reason Admit Date/Time Date of Consultation: Jul 21, 2018 Type of Consult Surgical consultation Reason for Consultation Abdominal pain cholelithiasis cholecystitis possible dilated CBD Requesting Provider: VIVIAN PERRY of Present Illness Patient 37-year-old female who presented twice to the emergency room over the last 3 days. Patient had severe epigastric right upper quadrant pain was noted to have gallstones this is the cause of cholelithiasis or cholecystitis. However on Saturday when she presented she improved after some pain medication and was told to follow-up as an outpatient for elective cholecystectomy. However today she began last evening she began having severe pain again worse than on Saturday and she presented to the emergency room and was admitted for pain control and evaluation of possible choledocholithiasis Past Medical History Medical History: no pertinent history Medications Current Medications Sodium Chloride 1,000 ml @ 100 mls/hr Q10H IV Last administered on 07/20/18at 21:26; Admin Dose 100 MLS/HR; Start 07/20/18 at 06:44 IV Flush (NS 3 ml) 3 ml PER PROTOCOL IV ; Start 07/20/18 at 07:00 Ondansetron HCl (Zofran Inj) 4 mg Q6H PRN IV NAUSEA AND/OR VOMITING; Start 07/20/18 at 07:00 Acetaminophen (Tylenol Tab) 650 mg Q6H PRN PO PAIN LEVEL 1-3 OR FEVER; Start 07/20/18 at 07:00 Docusate Sodium (Colace) 100 mg Q12H PRN PO CONSTIPATION; Start 07/20/18 at 07:00 Bisacodyl (Dulcolax) 5 mg DAILY PRN PO CONSTIPATION; Start 07/20/18 at 07:00 Piperacillin Sod/ Tazobactam Sod 100 ml @ 200 mls/hr Q6 IVPB Last administered on 07/20/18at 23:47; Admin Dose 200 MLS/HR; Start 07/20/18 at 10:00 Hydromorphone HCl (Dilaudid) 1 mg Q3H PRN IV SEVERE PAIN LEVEL 7-10 Last administered on 07/20/18at 21:26; Admin Dose 1 MG; Start 07/20/18 at 12:30 Allergies: Coded Allergies: No Known Allergy (Verified , 07/20/18) Social History Alcohol Use: none Smoking Status: Never smoker Drug Use: none Exam/Review of Systems Vital Signs Vitals Vital Signs Date Temp Pulse Resp B/P (MAP) Pulse Ox O2 O2 Flow FiO2 Time Delivery Rate 07/20/18 98.6 75 18 132/77 95 20:30 (95) 07/20/18 Room Air 14:52 Intake and Output 07/20/18 07/20/18 07/21/18 1515:00 23:00 07:00 IntakeIntake Total 200 ml 950 ml BalanceBalance 200 ml 950 ml Exam Gastrointestinal: tender (Right upper quadrant) Medications Medications Current Medications Sodium Chloride 1,000 ml @ 100 mls/hr Q10H IV Last administered on 07/20/18at 21:26; Admin Dose 100 MLS/HR; Start 07/20/18 at 06:44 IV Flush (NS 3 ml) 3 ml PER PROTOCOL IV ; Start 07/20/18 at 07:00 Ondansetron HCl (Zofran Inj) 4 mg Q6H PRN IV NAUSEA AND/OR VOMITING; Start 07/20/18 at 07:00 Acetaminophen (Tylenol Tab) 650 mg Q6H PRN PO PAIN LEVEL 1-3 OR FEVER; Start 07/20/18 at 07:00 Docusate Sodium (Colace) 100 mg Q12H PRN PO CONSTIPATION; Start 07/20/18 at 07:00 Bisacodyl (Dulcolax) 5 mg DAILY PRN PO CONSTIPATION; Start 07/20/18 at 07:00 Piperacillin Sod/ Tazobactam Sod 100 ml @ 200 mls/hr Q6 IVPB Last administered on 07/20/18at 23:47; Admin Dose 200 MLS/HR; Start 07/20/18 at 10:00 Hydromorphone HCl (Dilaudid) 1 mg Q3H PRN IV SEVERE PAIN LEVEL 7-10 Last administered on 07/20/18at 21:26; Admin Dose 1 MG; Start 07/20/18 at 12:30 BLAKE MICHEL MD Jul 21, 2018 01:05
[2018-07-21] MEDS: HYDROmorphONE 1 MG/ML SYG IV PRN ×3 (01:25→09:35)
[2018-07-21] MEDS: SOD CHLORIDE 0.9% 1,000 ML IV SCH ×3 (02:44→22:44)
[2018-07-21] MEDS: PIPER-TAZO 3.375 GM IV (PMX) 100 ML IVPB SCH ×4 (05:34→20:32)
[2018-07-21] MEDS ORDERED: GLYCOPYRROLATE 0.4 MG INJ ONE (07:00)
[2018-07-21] MEDS: ACETAMINOPHEN 325 MG TAB PO PRN (09:03)
--- NOTE | 2018-07-21 12:52 | PN ---
Date/Time of Note Date/Time of Note DATE: 07/21/18 TIME: 12:51 Assessment/Plan VTE Prophylaxis Risk score (from Nsg)>0 risk: 0 SCD applied (from Nsg): Yes SCD contraindicated: low risk/ambulating Pharmacological prophylaxis: NA/contraindicated Pharm contraindication: surgical contra Lines/Catheters IV Catheter Type (from Nrs): Peripheral IV Urinary Cath still in place: No Assessment/Plan Hospital Course Assessment plan 1. Acute cholecystitis, stable. Patient for surgery later today Low perioperative risk. Risk-benefit ratio weighs in favor of proceeding forward directly to surgery from medical standpoint 2. Anemia? Subjective: Moderate pain. No chest pain dyspnea fever. Moderate flatus Objective: Vital signs stable Physical exam No pallor icterus adenopathy Regular Clear Bs dimin mild tender nondistended no RRG no flank ecchymosis No edema Result Diagram: 07/21/1841907/21/180 Results 24hrs Laboratory Tests Test 07/21/18 04:20 White Blood Count 8.4 Red Blood Count 3.97 L Hemoglobin 11.6 L Hematocrit 34.5 L Mean Corpuscular Volume 86.9 Mean Corpuscular Hemoglobin 29.2 Mean Corpuscular Hemoglobin Concent 33.6 Red Cell Distribution Width 13.4 Platelet Count 227 Mean Platelet Volume 9.3 Immature Granulocytes % 0.500 H Neutrophils % 72.6 Lymphocytes % 17.2 Monocytes % 8.8 Eosinophils % 0.5 Basophils % 0.4 Nucleated Red Blood Cells % 0.0 Immature Granulocytes # 0.040 H Neutrophils # 6.1 Lymphocytes # 1.4 Monocytes # 0.7 Eosinophils # 0.0 Basophils # 0.0 Nucleated Red Blood Cells # 0.0 Sodium Level 142 Potassium Level 3.9 Chloride Level 102 Carbon Dioxide Level 28 Anion Gap 12 Blood Urea Nitrogen 9 Creatinine 0.72 Est Glomerular Filtrat Rate mL/min > 60 Glucose Level 111 Hemoglobin A1c 4.9 Calcium Level 9.1 Magnesium Level 2.2 Total Bilirubin 0.6 Direct Bilirubin 0.00 Indirect Bilirubin 0.6 Aspartate Amino Transf (AST/SGOT) 66 H Alanine Aminotransferase (ALT/SGPT) 119 H Alkaline Phosphatase 105 Total Protein 7.8 Albumin 4.3 Globulin 3.50 H Albumin/Globulin Ratio 1.22 Triglycerides Level 89 Cholesterol Level 191 LDL Cholesterol, Calculated 144 HDL Cholesterol 29 L Cholesterol/HDL Ratio 6.5 Thyroid Stimulating Hormone (TSH) 1.410 Exam/Review of Systems Vital Signs Vitals Vital Signs Date Temp Pulse Resp B/P (MAP) Pulse Ox O2 O2 Flow FiO2 Time Delivery Rate 07/21/18 37.0 09:50 07/21/18 73 18 118/69 95 Room Air 08:16 (85) Intake and Output 07/20/18 07/20/18 07/21/18 1515:00 23:00 07:00 IntakeIntake Total 200 ml 1100 ml 1000 ml BalanceBalance 200 ml 1100 ml 1000 ml Medications Medications Current Medications Sodium Chloride 1,000 ml @ 100 mls/hr Q10H IV Last administered on 07/21/18 09:36; Admin Dose 100 MLS/HR; Start 07/20/18 at 06:44 IV Flush (NS 3 ml) 3 ml PER PROTOCOL IV ; Start 07/20/18 at 07:00 Ondansetron HCl (Zofran Inj) 4 mg Q6H PRN IV NAUSEA AND/OR VOMITING Last administered on 07/21/18 09:03; Admin Dose 4 MG; Start 07/20/18 at 07:00 Acetaminophen (Tylenol Tab) 650 mg Q6H PRN PO PAIN LEVEL 1-3 OR FEVER Last administered on 07/21/18 09:03; Admin Dose 650 MG; Start 07/20/18 at 07:00 Docusate Sodium (Colace) 100 mg Q12H PRN PO CONSTIPATION; Start 07/20/18 at 07:00 Bisacodyl (Dulcolax) 5 mg DAILY PRN PO CONSTIPATION; Start 07/20/18 at 07:00 Piperacillin Sod/ Tazobactam Sod 100 ml @ 200 mls/hr Q6 IVPB Last administered on 07/21/18 12:05; Admin Dose 200 MLS/HR; Start 07/20/18 at 10:00 Hydromorphone HCl (Dilaudid) 1 mg Q3H PRN IV SEVERE PAIN LEVEL 7-10 Last administered on 07/21/18 09:35; Admin Dose 1 MG; Start 07/20/18 at 12:30 MARTÍN DOLAN MD Jul 21, 2018 12:52
--- NOTE | 2018-07-21 13:18 | PN ---
Date/Time of Note Date/Time of Note DATE: 07/21/18 TIME: 12:55 Assessment/Plan VTE Prophylaxis Risk score (from Nsg)>0 risk: 0 SCD applied (from Nsg): Yes Pharmacological prophylaxis: other (scds) Lines/Catheters IV Catheter Type (from Nrsg): Peripheral IV Urinary Cath still in place: No Assessment/Plan Hospital Course Assessment/Plan Assessment: RUQ/Upper abd pain Symptomatic cholelithiasis vs Cholecystitis Dilated CBD/ R/o Choledocholithiasis -MRCP- dilated CBD 0.8 cm no definite stone Transaminitis, Normal Bili UTI - on Cipro [place] induced Constipation Plan: MRCP - reviewed- AST/ALT without significant change from yesterday, moreover bilirubin and alk phos remain WNL. NO plan or ERCP at this time- recommend to monitor and follow up with surgical recommendations. Monitor Labs Continue current regimen. If no plan for surgery today, start diet as tolerated Patient seen in collaboration with Dr. Frazier/Janine Subjective: Course reviewed with nursing staff Patient interviewed and examined All labs, imaging and other results reviewed The patient still c/o sig RUQ pain, better with pain medication. Discussed results of MRCP and plan to monitor. Pt verbalized understanding. General: Patient is currently lying in bed, she does appear to be in mild distress from abdominal pain HEENT: Atraumatic, normocephalic. The pupils are equal, round and reactive. Extraocular motor are intact Neck: Supple with full range of motion. No rigidity or meningismus Chest: Nontender Lungs: Clear to auscultation bilaterally, no crackles rales or wheezing Heart: Normal S1-S2, Regular rhythm and rate. No overt murmurs appreciated on auscultation Abdomen: Upper abdominal tenderness radiating to the back and chest, nondistended, normal bowel sounds, no hernias, no ascites. Extremities: Normal to inspection, no edema no cyanosis Result Diagram: 07/21/1841907/21/18419 Results 24hrs Laboratory Tests Test 07/21/18 04:20 White Blood Count 8.4 Red Blood Count 3.97 L Hemoglobin 11.6 L Hematocrit 34.5 L Mean Corpuscular Volume 86.9 Mean Corpuscular Hemoglobin 29.2 Mean Corpuscular Hemoglobin Concent 33.6 Red Cell Distribution Width 13.4 Platelet Count 227 Mean Platelet Volume 9.3 Immature Granulocytes % 0.500 H Neutrophils % 72.6 Lymphocytes % 17.2 Monocytes % 8.8 Eosinophils % 0.5 Basophils % 0.4 Nucleated Red Blood Cells % 0.0 Immature Granulocytes # 0.040 H Neutrophils # 6.1 Lymphocytes # 1.4 Monocytes # 0.7 Eosinophils # 0.0 Basophils # 0.0 Nucleated Red Blood Cells # 0.0 Sodium Level 142 Potassium Level 3.9 Chloride Level 102 Carbon Dioxide Level 28 Anion Gap 12 Blood Urea Nitrogen 9 Creatinine 0.72 Est Glomerular Filtrat Rate mL/min > 60 Glucose Level 111 Hemoglobin A1c 4.9 Calcium Level 9.1 Magnesium Level 2.2 Total Bilirubin 0.6 Direct Bilirubin 0.00 Indirect Bilirubin 0.6 Aspartate Amino Transf (AST/SGOT) 66 H Alanine Aminotransferase (ALT/SGPT) 119 H Alkaline Phosphatase 105 Total Protein 7.8 Albumin 4.3 Globulin 3.50 H Albumin/Globulin Ratio 1.22 Triglycerides Level 89 Cholesterol Level 191 LDL Cholesterol, Calculated 144 HDL Cholesterol 29 L Cholesterol/HDL Ratio 6.5 Thyroid Stimulating Hormone (TSH) 1.410 Exam/Review of Systems Vital Signs Vitals Vital Signs Date Temp Pulse Resp B/P (MAP) Pulse Ox O2 O2 Flow FiO2 Time Delivery Rate 07/21/18 37.0 09:50 07/21/18 73 18 118/69 95 Room Air 08:16 (85) Intake and Output 07/20/18 07/20/18 07/21/18 1515:00 23:00 07:00 IntakeIntake Total 200 ml 1100 ml 1000 ml BalanceBalance 200 ml 1100 ml 1000 ml Medications Medications Current Medications Sodium Chloride 1,000 ml @ 100 mls/hr Q10H IV Last administered on 07/21/18at 09:36; Admin Dose 100 MLS/HR; Start 07/20/18 at 06:44 IV Flush (NS 3 ml) 3 ml PER PROTOCOL IV ; Start 07/20/18 at 07:00 Ondansetron HCl (Zofran Inj) 4 mg Q6H PRN IV NAUSEA AND/OR VOMITING Last administered on 07/21/18at 09:03; Admin Dose 4 MG; Start 07/20/18 at 07:00 Acetaminophen (Tylenol Tab) 650 mg Q6H PRN PO PAIN LEVEL 1-3 OR FEVER Last administered on 07/21/18at 09:03; Admin Dose 650 MG; Start 07/20/18 at 07:00 Docusate Sodium (Colace) 100 mg Q12H PRN PO CONSTIPATION; Start 07/20/18 at 07:00 Bisacodyl (Dulcolax) 5 mg DAILY PRN PO CONSTIPATION; Start 07/20/18 at 07:00 Piperacillin Sod/ Tazobactam Sod 100 ml @ 200 mls/hr Q6 IVPB Last administered on 07/21/18at 12:05; Admin Dose 200 MLS/HR; Start 07/20/18 at 10:00 Hydromorphone HCl (Dilaudid) 1 mg Q3H PRN IV SEVERE PAIN LEVEL 7-10 Last administered on 07/21/18at 09:35; Admin Dose 1 MG; Start 07/20/18 at 12:30 Famotidine (Pepcid Iv) 20 mg DAILY IV ; Start 07/21/18 at 13:00; Status MAYRA LEWIS Jul 21, 2018 13:05
[2018-07-21] MEDS: FAMOTIDINE 20 MG INJ IV SCH (13:46)
--- NOTE | 2018-07-21 15:55 | PREAC ---
Date/Time of Note Date/Time of Note DATE: 07/21/18 TIME: 15:54 Anesthesia Eval and Record Evaluation Time Pre-Procedure Interview DATE: 07/21/18 TIME: 15:54 Age 37 Sex female NPO: 8 hrs Preoperative diagnosis SYMPTOMATIC CHOLELITHIASIS Planned procedure LAP JENN Past Medical History Past Medical History: None Surgery & Anesthesia Issues No known issue (BTL) Meds Anticoagulation: No Beta Yakov within 24 hr: No Reason Beta Yakov not given: Pt. not on B-Yakov Discontinued Reported Medications Vits W-Ca,Fe,Fa(<1MG) () 1 Tab Tablet, 1 TAB PO DAILY, 0 Refills 03/25/11 Discontinued Scripts Ciprofloxacin (Ciprofloxacin) 500 Mg/5 Ml [place].[facility].rec, 500 MG PO BID for 7 Days, #14 TAB Prov:EDIHT FARIAS MD 07/18/18 Ondansetron (Ondansetron Odt) 8 Mg Tab.rapdis, 8 MG PO Q6H PRN for NAUSEA AND/OR VOMITING, #10 TAB Prov:EDITH FARIAS MD 07/18/18 Hydrocodone/Acetaminophen ([place] 5-325 Tablet) 1 Each Tablet, 1 TAB PO Q6H PRN for PAIN, #14 TAB Prov:EDITH FARIAS MD 07/18/18 Current Medications Sodium Chloride 1,000 ml @ 100 mls/hr Q10H IV Last administered on 07/21/18at 09:36; Admin Dose 100 MLS/HR; Start 07/20/18 at 06:44 IV Flush (NS 3 ml) 3 ml PER PROTOCOL IV ; Start 07/20/18 at 07:00 Ondansetron HCl (Zofran Inj) 4 mg Q6H PRN IV NAUSEA AND/OR VOMITING Last administered on 07/21/18at 09:03; Admin Dose 4 MG; Start 07/20/18 at 07:00 Acetaminophen (Tylenol Tab) 650 mg Q6H PRN PO PAIN LEVEL 1-3 OR FEVER Last administered on 07/21/18at 09:03; Admin Dose 650 MG; Start 07/20/18 at 07:00 Docusate Sodium (Colace) 100 mg Q12H PRN PO CONSTIPATION; Start 07/20/18 at 07:00 Bisacodyl (Dulcolax) 5 mg DAILY PRN PO CONSTIPATION; Start 07/20/18 at 07:00 Piperacillin Sod/ Tazobactam Sod 100 ml @ 200 mls/hr Q6 IVPB Last administered on 07/21/18at 12:05; Admin Dose 200 MLS/HR; Start 07/20/18 at 10:00 Hydromorphone HCl (Dilaudid) 1 mg Q3H PRN IV SEVERE PAIN LEVEL 7-10 Last administered on 07/21/18at 09:35; Admin Dose 1 MG; Start 07/20/18 at 12:30 Famotidine (Pepcid Iv) 20 mg DAILY IV Last administered on 07/21/18at 13:46; Admin Dose 20 MG; Start 07/21/18 at 13:00 Meds reviewed: Yes Allergies Coded Allergies: No Known Allergy (Verified , 07/20/18) Allergies Reviewed: Yes Labs/Studies Labs Reviewed: Reviewed by anesthesiologist Result Diagram: 07/21/18 0420 07/21/18 0420 Laboratory Tests 07/21/18 04:20 Blood Bank Test 07/20/18 17:09 Antibody Screen NEGATIVE Blood Product Summary Counts Blood Type A POSITIVE Crossmatch Red Blood Cells test: Negative Studies: ECG (NL) Pre-procedure Exam Last vitals Vital Signs Date Temp Pulse Resp B/P (MAP) Pulse Ox O2 O2 Flow FiO2 Time Delivery Rate 07/21/18 98.9 71 18 114/57 96 Room Air 14:08 (76) Airway: Adequate mouth opening, Adequate thyromental dist Mallampati: Mallampati II Teeth: Normal Lung: Normal Heart: Normal ASA Physical Status ASA physical status: 1 Emergency: None Planned Anesthetic General/MAC: ETT Planned Pain Management Single shot nerve block, Parenteral pain med Pre-operative Attestations Prior to commencing anesthesia and surgery, the patient was re-evaluated, there was verification of: *The patient's identity *The results of appropriate recent lab work and preoperative vital signs *The above evaluation not changing prior to induction *Anesthetic plan, risk benefits, alternative and complications discussed with patient/family; questions answered; patient/family understands, accepts and wishes to proceed. Monster López M.D. Jul 21, 2018 15:55
[2018-07-21] MEDS ORDERED: NEOSTIGMINE 3 MG/3 ML SYRINGE ONE (15:58)
[2018-07-21] MEDS ORDERED: ROCURONIUM 50 MG INJ ONE (15:58)
[2018-07-21] MEDS ORDERED: MIDAZOLAM 1 MG/ML 2 ML INJ ONE (15:58)
[2018-07-21] MEDS ORDERED: ONDANSETRON 4 MG INJ ONE (15:58)
[2018-07-21] MEDS ORDERED: PROPOFOL 20 ML ONE (15:58)
[2018-07-21] MEDS ORDERED: CEFAZOLIN 1 GM INJ ONE (15:58)
[2018-07-21] MEDS ORDERED: DEXAMETHASONE 4 MG/ML 5 ML INJ ONE (15:59)
[2018-07-21] MEDS ORDERED: HYDROmorphONE 1 MG/5 ML IV SYRINGE IV PRN ×3 (16:00)
[2018-07-21] MEDS ORDERED: EPHEDrine SULFATE 50 MG/5 ML SYG IV PRN (16:00)
[2018-07-21] MEDS ORDERED: TRIMETHOBENZAMIDE 100 MG/ML VIAL IM PRN (16:00)
[2018-07-21] MEDS ORDERED: IPRATROPIUM (NEB) 0.5 MG/2.5 ML AMP HHN PRN (16:00)
[2018-07-21] MEDS ORDERED: DIPHENHYDRAMINE 50 MG INJ IV PRN (16:00)
[2018-07-21] MEDS ORDERED: MEPERIDINE 25 MG INJ IV PRN (16:00)
[2018-07-21] MEDS ORDERED: LABETALOL HCL 20MG INJ IV PRN (16:00)
[2018-07-21] MEDS ORDERED: MIDAZOLAM 1 MG/ML 2 ML INJ IV PRN (16:00)
[2018-07-21] MEDS ORDERED: FENTAnyl 50 MCG/ML VIAL IV PRN ×2 (16:00)
[2018-07-21] MEDS ORDERED: hydrALAzine 20 MG INJ IV PRN (16:00)
[2018-07-21] MEDS ORDERED: OXYCODONE/ACETAMINOPHEN (5/325) TAB PO PRN ×2 (16:00)
[2018-07-21] MEDS ORDERED: ONDANSETRON 4 MG INJ IV PRN ×2 (16:00→18:30)
[2018-07-21] MEDS ORDERED: ALBUTEROL 0.083% (NEB) 2.5 MG/3 ML AMP HHN PRN (16:00)
[2018-07-21] MEDS ORDERED: ROPIVACAINE 0.5 % 30 ML VIAL ONE (16:05)
[2018-07-21] MEDS ORDERED: LIDOCAINE 1%/EPI 30 ML INJ ONE (16:57)
[2018-07-21] MEDS ORDERED: BUPIVACAINE 0.25% (MPF) 30 ML INJ ONE (16:57)
[2018-07-21] MEDS ORDERED: METOCLOPRAMIDE 10 MG INJ ONE (18:10)
--- NOTE | 2018-07-21 18:27 | OPR ---
Date/Time of Note Date/Time of Note DATE: 07/21/18 TIME: 18:18 Operative Report Free Text/Dictation Operative report Procedure Date: Jul 21, 2018 Preoperative Diagnosis Acute cholecystitis possible choledocholithiasis Postoperative Diagnosis Severe acute cholecystitis with cholelithiasis Operation/Procedure Performed Laparoscopic cholecystectomy Surgeon Blake Connelly MD see signature line Cinema Or Theatre Manager None Anesthesia Type: general Anesthesiologist: Monster López M.D. Estimated Blood Loss: 10 - 50 ml's Transfusion none Specimen Gallbladder and content Grafts/Implants none Tubes/Drains None Complications none Pt Condition Post Procedure: stable Disposition: PACU Indications Acute cholecystitis Procedure Description Patient was brought to the operating placed in supine position general she is administered with intubation after informed consent reviewed and signed. Patient was prepped and draped in sterile fashion orogastric tube inserted by anesthesia Veress needle was inserted at Avina's point insufflation delivered to maintain pneumoperitoneum at 15 mmHg throughout the procedure course of Marcaine was infiltrated all trocar sites patient received a tap block prior to beginning of surgery. All stab incisions made supraumbilical and a 5 mm trocar was inserted under direct visualization with a 30 degree laparoscope the varies needle was removed and epigastric 5 mm trocar and a right lateral 5 mm were inserted next the camera was then switched to the right lateral trocar and the supraumbilical port was exchanged for an 11 mm port in between the umbilical p ort and the right lateral port and an additional 5 mm trocar was inserted patient was placed in reverse Trendelenburg and right side up. There were a significant amount of adhesions along the gallbladder gallbladder was quite tense and thickened and so a cholecystostomy was done with a hook cautery and then suction was used to decompress the body of the gallbladder. The fundus of the gallbladder was grasped and reach with retracted up over the right edge of the liver and the grasper was secured with a self-retaining Matt's arm. There is significant adhesions of omentum adherent peel along the body neck of the gallbladder which was taken down until the neck of the gallbladder Valles's pouch was identified was markedly edematous tissues were divided with hook cautery .Combination of suction irrigation blunt dissection with a critical view first exposed the cystic duct which was skeletonized well and 2 clips were placed on the patient's side one the gallbladder side and divided similar fashion then the cystic artery was identified skeletonized and double clipped on the patient's side then one on the gallbladder side and divided the gallbladder was then carefully taken off the liver bed there the liver capsule was quite edematous and friable and there was bleeding from this which accumulated approximately 30-50 cc. The gallbladder was taken off. He was placed off to the side of the area was irrigated and aspirated there was still some oozing which was controlled with monopolar cautery because of the oozing along the raw surface of the liver capsule 5 cc of FloSeal were then instilled with good result. Final aspiration of the acutely fluid was performed. A Endobag was then placed to the umbilical port and the gallbladder placed and this was brought through the wound after it was enlarged and an additional centimeter to facilitate delivery. There is no spillage of bile into the abdomen. The all the nerve the insufflation was also pneumoperitoneum allowed to escape all trochars were removed the fascia incision was closed with 0 Vicryl and the skin was closed with 4-0 Monocryl and skin glue. Patient was explained the operative brought recovery in stable condition. . l Sponge needle count was correct x2 BLAKE CONNELLY MD Jul 21, 2018 18:27
[2018-07-21] MEDS ORDERED: HYDROCODONE/APAP (5/325) TAB PO PRN (18:30)
[2018-07-21] MEDS ORDERED: HYDROmorphONE 0.5 MG/0.5 ML SYG IV PRN (18:30)
[2018-07-21] MEDS ORDERED: KETOROLAC 30 MG INJ IV PRN (18:30)
[2018-07-21] MEDS: FENTAnyl 50 MCG/ML VIAL IV PRN ×2 (18:53→18:59)
[2018-07-21] MEDS: DOCUSATE SODIUM 100 MG CAP PO SCH (20:32)
[2018-07-21] MEDS: D5W-0.45 NACL + KCL 20 MEQ 1,000 ML IV SCH (20:32)
[2018-07-22] VITALS: BP 102/60; PULSE 89
[2018-07-22 00:23] VITALS: BP 121/63; PULSE 92; RESP 16
[2018-07-22] MEDS: PIPER-TAZO 3.375 GM IV (PMX) 100 ML IVPB SCH ×2 (01:02→06:45)
[2018-07-22 04:07] VITALS: BP 97/54; PULSE 80; RESP 16
[2018-07-22] MEDS: D5W-0.45 NACL + KCL 20 MEQ 1,000 ML IV SCH ×2 (04:13→06:58)
[2018-07-22] MEDS: HYDROmorphONE 1 MG/ML SYG IV PRN (06:58)
[2018-07-22] MEDS ORDERED: ENOXAPARIN 30 MG/0.3 ML SYG SC SCH (07:00)
--- NOTE | 2018-07-22 07:15 | PAC ---
Date/Time of Note Date/Time of Note DATE: 07/22/18 TIME: 07:14 Post-Anesthesia Notes Post-Anesthesia Note Last documented vital signs Vital Signs Date Temp Pulse Resp B/P (MAP) Pulse Ox O2 O2 Flow FiO2 Time Delivery Rate 07/22/18 99.5 80 16 97/54 (68) 95 Room Air 04:07 07/21/18 2.0 19:50 Activity: WNL Respiratory function: WNL Cardiovascular function: WNL Mental status: Baseline Pain reasonably controlled: Yes Hydration appropriate: Yes Nausea/Vomiting absent: Yes Monster López M.D. Jul 22, 2018 07:15
[2018-07-22 07:37] VITALS: BP 105/59; PULSE 87; RESP 18
[2018-07-22] MEDS: FAMOTIDINE 20 MG INJ IV SCH (08:34)
[2018-07-22] MEDS: DOCUSATE SODIUM 100 MG CAP PO SCH (08:34)
[2018-07-22] MEDS ORDERED: IBUP-1542 NGT (10:52)
[2018-07-22] MEDS ORDERED: ACET325T33 PO (10:52)
--- NOTE | 2018-07-22 10:52 | PDOCDIS ---
Discharge Instructions DIAGNOSIS Discharge Diagnosis Acute cholecystitis CONDITION [id number] Patient Condition: [id number] Good HOME CARE INSTRUCTIONS: [id number] Diet Instructions: [id number] Regular ACTIVITY: [id number] Activity Restrictions: [id number] Avoid heavy lifting (No lifting more than 20 lbs for 2 weeks.) FOLLOW UP/APPOINTMENTS Follow-up Plan 1. See Dr. Connelly in clinic in 1-2 weeks to review pathology. 2. Take ibuprofen and tylenol as needed for pain. 3. Return to the emergency room for worsening pain not controlled with oral pain meds, or vomiting unable to keep down liquids. RACHNA CONTRERAS MD Jul 22, 2018 10:52
[2018-07-22] MEDS ORDERED: IBUPROFEN 600 MG TAB NGT PRN (11:00)
[2018-07-22] MEDS: ACETAMINOPHEN 325 MG TAB PO PRN (11:47)
--- NOTE | 2018-07-22 14:36 | DS ---
Date/Time of Note Date/Time of Note DATE: 07/22/18 TIME: 14:34 Discharge Summary Admission/Discharge Info Admit Date/Time Jul 20, 2018 at 06:40 Discharge Date/Time Jul 22, 2018 at 13:54 Discharge Diagnosis Acute cholecystitis Patient Condition: Good Consults General surgery Dr. Connelly Procedures Lap cholecystectomy Hx of Present Illness Chief complaint: Abdominal pain nausea vomiting This is a 37-year-old female who was recently here diagnosed with biliary colic who presents because of persistent pain. Patient was seen here several days ago and diagnosed with biliary colic on ultrasound which showed a possibly dilated common bile duct. LFTs were nonobstructive. The patient states [place] at home is not helping. 10 out of 10 severe persistent right upper quadrant abdominal pain is present. No fevers or chills. Persistent nausea And vomiting. Allergies: NKDA Medications: See SEP Hospital Course The patient got MRCP which confirmed acute cholecystitis with no choledocho. She was taken to OR by Dr. Connelly for lap cholecystectomy. Afterwards feeling well, tolerating diet, ambulating, pain controlled on ibuprofen and acetaminophen. Home Meds Active Scripts Ibuprofen* (Ibuprofen*) 600 Mg Tablet, 600 MG NGT Q6H PRN for MODERATE PAIN LEVEL 4-6, #30 TAB Prov:RACHNA CONTRERAS MD 07/22/18 Acetaminophen* (Tylenol*) 325 Mg Tablet, 650 MG PO Q6H PRN for PAIN LEVEL 1-3 OR FEVER, #30 TAB Prov:RACHNA CONTRERAS MD 07/22/18 Discontinued Reported Medications Vits W-Ca,Fe,Fa(<1MG) () 1 Tab Tablet, 1 TAB PO DAILY, 0 Refills 03/25/11 Discontinued Scripts [facility]) [facility]ID for 7 Days, #14 TAB Prov:EDITH FARIAS MD 07/18/18 Ondansetron (Ondansetron Odt) 8 Mg Tab.rapdis, 8 MG PO Q6H PRN for NAUSEA AND/OR VOMITING, #10 TAB Prov:EDTIH FARIAS MD 07/18/18 Hydrocodone/Acetaminophen ([place] 5-325 Tablet) 1 Each Tablet, 1 TAB PO Q6H PRN for PAIN, #14 TAB Prov:EDITH FARIAS MD 07/18/18 Follow-up Plan 1. See Dr. Connelly in clinic in 1-2 weeks to review pathology. 2. Take ibuprofen and tylenol as needed for pain. 3. Return to the emergency room for worsening pain not controlled with oral pain meds, or vomiting unable to keep down liquids. Primary Care Provider Care Physician No Primary Time spent on discharge: > 30 minutes Pending Labs Laboratory Tests Test 07/22/18 04:23 White Blood Count 8.3 10^3/ul (4.8-10.8) Red Blood Count 3.84 10^6/ul (4.20-5.40) Hemoglobin 11.2 g/dl (12.0-16.0) Hematocrit 33.0 % (37.0-47.0) Mean Corpuscular Volume 85.9 fl (82.0-101.0) Mean Corpuscular Hemoglobin 29.2 pg (29.0-33.0) Mean Corpuscular Hemoglobin Concent 33.9 g/dl (32.0-37.0) Red Cell Distribution Width 13.1 % (11.5-14.5) Platelet Count 251 10^3/UL (140-415) Mean Platelet Volume 9.1 fl (7.4-10.4) Immature Granulocytes % 0.200 % (0.001-0.429) Neutrophils % 90.7 % (39.0-77.0) Lymphocytes % 5.7 % (15.0-51.0) Monocytes % 3.3 % (0.0-11.0) Eosinophils % 0.0 % (0.0-7.0) Basophils % 0.1 % (0.0-2.0) Nucleated Red Blood Cells % 0.0 /100WBC (0.0-0.0) Immature Granulocytes # 0.020 10^3/ul (0.0-0.031) Neutrophils # 7.5 10^3/ul (1.6-7.5) Lymphocytes # 0.5 10^3/ul (0.8-2.9) Monocytes # 0.3 10^3/ul (0.3-0.9) Eosinophils # 0.0 10^3/ul (0.0-0.5) Basophils # 0.0 10^3/ul (0.0-0.1) Nucleated Red Blood Cells # 0.0 10^3/ul (0.0-0.0) Sodium Level 143 mmol/L (135-144) Potassium Level 4.1 mmol/L (3.5-5.1) Chloride Level 103 mmol/L (97-110) Carbon Dioxide Level 27 mmol/L (21-31) Anion Gap 13 (5-13) Blood Urea Nitrogen 7 mg/dl (7-20) Creatinine 0.60 mg/dl (0.44-1.00) Est Glomerular Filtrat Rate mL/min > 60 mL/min (>60) Glucose Level 152 mg/dl (70-220) Calcium Level 9.2 mg/dl (8.4-10.2) Magnesium Level 2.2 mg/dl (1.7-2.5) Total Bilirubin 0.4 mg/dl (0.2-1.3) Direct Bilirubin 0.00 mg/dl (0.00-0.20) Indirect Bilirubin 0.4 mg/dl (0-1.1) Aspartate Amino Transf (AST/SGOT) 60 IU/L (15-46) Alanine Aminotransferase (ALT/SGPT) 90 IU/L (13-69) Alkaline Phosphatase 86 IU/L (42-121) Total Protein 7.5 g/dl (6.1-8.1) Albumin 4.1 g/dl (3.3-4.9) Globulin 3.40 g/dl (1.3-3.2) Albumin/Globulin Ratio 1.20 Lipase 52 U/L (23-300) RACHNA CONTRERAS MD Jul 22, 2018 14:36
--- NOTE | 2018-07-22 19:46 | RADRPT ---
Vent Rate: 65 bpm RR Interval: 0 msec OK Interval: 156 msec QRS Duration: 84 msec QT Interval: 422 msec QTC Interval: 438 msec P-R-T [place]: 58 - 55 - 43 degrees Normal sinus rhythm Normal ECG Electronically Signed By: Dre Pires [id number]
== END 2018-07-22 13:54 | disposition home or self-care (01) | DRG 418 ==
LOC: E/R 05:07 → MS1 06:40 → EDBEDREQSVC 07:23
PROVIDERS: ADMIT Family Medicine; ATTEND Internal Medicine
PROC: 0FT44ZZ Resection of Gallbladder, Percutaneous Endoscopic Approach (ICD-10-PCS; principal; 2018-07-21 18:30)
DX: K80.00 Calculus of gallbladder with acute cholecystitis without obstruction (principal); N39.0 Urinary tract infection, site not specified
CPT/HCPCS: 36415; 71045; 74181; 76705; 80053; 80061; 81025; 83036; 83690; 83735; 84443; 85025; 85610; 85730; 86850; 86900; 86901; 86920; 88304; 93005; 96374; 96375; J0295; J0690; J1100; J1170; J2250; J2270; J2405; J2543; J2710; J2765; J2795; J3010; J3480; J7030